=== PATIENT | female | born 1995 | race Caucasian/White ===

== ENCOUNTER 2019-10-18 23:00 | Emergency (ER) | payer SELFPAY ==
[~2019-10-18] VITALS: Ht 157.5 cm; Wt 59.1 kg
[2019-10-18 23:05] VITALS: BP 132/84; TEMP 98.4
[2019-10-18 23:47] LABS: BASO % 0.1 % (0.0-2.0); GRAN # 14.8 (1.4-6.5); GRAN % 88.5 % (42.2-75.2); HEMATOCRIT 42.8 % (37.0-47.0); HEMOGLOBIN 14.5 g/dl (12.5-16.0); LYMPH # 1.5 (1.2-3.4); LYMPH % 8.7 % (20.0-51.0); MEAN CELL VOLUME 87 fl (80.0-100.0); MEAN CORPUSCULAR HEMOGLOBIN 29 pg (27.0-31.0); MEAN CORPUSCULAR HGB CONC 34 g/dl (33.0-37.0); MEAN PLATELET VOLUME 11.2 fl (7.4-10.4); MONO # 0.4 (0.1-0.6); MONO % 2.2 % (1.7-9.3); PLATELET COUNT 238 K/mm3 (130-400); RED BLOOD COUNT 4.95 M/mm3 (4.10-5.30); REDCELL DISTRIBUTION WIDTH-CV 13.2 % (11.5-14.5)
[2019-10-18 23:55] LABS: ALBUMIN 5.4 gm/dL (3.5-5.0); BILIRUBIN,TOTAL 0.7 mg/dL (0.0-1.0); C-REACTIVE PROTEIN 2.2 mg/dL (0.0-0.9); CALCIUM 9.6 mg/dL (8.4-10.2); CREATININE, serum 0.52 (0.52-1.25); POTASSIUM 3.9 mmol/L (3.4-5.0); TOTAL PROTEIN 9.7 gm/dL (6.4-8.2)
[2019-10-19 00:53] LABS: COLLECTION METHOD CLEAN CATCH
[2019-10-19 01:10] LABS: MUCOUS Present /lpf; PH 6 (5-8); URINE APPEARANCE Hazy; URINE BACTERIA None Seen /hpf; URINE BILIRUBIN Negative (NEGATIVE); URINE BLOOD Negative (NEGATIVE); URINE COLOR Yellow; URINE GLUCOSE Negative (NEGATIVE); URINE KETONE 2+ (NEGATIVE); URINE LEUKOCYTE ESTERASE Negative (NEGATIVE); URINE NITRATE Negative (NEGATIVE); URINE PROTEIN(semi-quant) 1+ (NEGATIVE); URINE RBC 0-2 /hpf; URINE UROBILINOGEN Negative (NEGATIVE)
[2019-10-19] MEDS ORDERED: ZOFRAN ODT4 MG PO (02:09)
[2019-10-19 03:29] VITALS: PULSE 65
== END 2019-10-19 03:50 | disposition home or self-care (01) ==
LOC: COL.ER 23:00
PROVIDERS: Nurse Practitioner
DX: R11.2 Nausea with vomiting, unspecified (principal)
CPT/HCPCS: J2405; J2550; J7030; Q9967